=== PATIENT | male | born 1950 | race Caucasian/White ===

== ENCOUNTER 2019-07-30 20:12 | Emergency (ER) | payer MEDICARE, BC ==
[~2019-07-30] VITALS: Ht 175.3 cm; Wt 95.3 kg
[2019-07-30] MEDS ORDERED: TDAP DIPH,PERTUSS,TET VAC/PF 0.5 ML DISP.SYRIN IM ONE (21:00)
--- NOTE | 2019-07-30 21:13 | NUR ---
Per patient, he had already received tetanus vaccine within the last 5 years. ERMD made aware and ERMD stated to cancel the TDAP order.
--- NOTE | 2019-07-30 21:39 | NUR ---
Patient discharged to home in stable conditon. Written and verbal after care instructions given. Patient verbalizes understanding of instructions. Patient ambulated with stable gait.
[2019-07-30 21:46] VITALS: BP 151/89
== END 2019-07-30 21:11 | disposition home or self-care (01) ==
LOC: ER 20:19
DX: S61.212A Laceration without foreign body of right middle finger without damage to nail, initial encounter (principal); E78.00 Pure hypercholesterolemia, unspecified; W26.8XXA Contact with other sharp object(s), not elsewhere classified, initial encounter; Y93.89 Activity, other specified; Y92.89 Other specified places as the place of occurrence of the external cause; Y99.8 Other external cause status
CPT/HCPCS: 12002; 99283; J3490; A4217; A4663

== ENCOUNTER 2019-08-01 15:12 | Emergency (ER) | payer MEDICARE, BC ==
[~2019-08-01] VITALS: Ht 175.3 cm; Wt 95.3 kg
--- NOTE | 2019-08-01 15:22 | NUR ---
Dr Saeed at the bedside for MSE.
--- NOTE | 2019-08-01 15:28 | NUR ---
Patient discharged to home in stable conditon. Written and verbal after care instructions given. Patient verbalizes understanding of instructions.
== END 2019-08-01 15:28 | disposition home or self-care (01) ==
LOC: ER 15:12
DX: S61.212D Laceration without foreign body of right middle finger without damage to nail, subsequent encounter (principal); E78.00 Pure hypercholesterolemia, unspecified; X58.XXXD Exposure to other specified factors, subsequent encounter
CPT/HCPCS: A4663

== ENCOUNTER 2019-08-16 10:48 | Emergency (ER) | payer MEDICARE, BC ==
[~2019-08-16] VITALS: Ht 175.3 cm; Wt 95.3 kg
--- NOTE | 2019-08-16 11:01 | NUR ---
Patient discharged to home in stable conditon. after care instructions given by md. Patient verbalizes understanding of instructions.
== END 2019-08-16 11:19 | disposition home or self-care (01) ==
LOC: ER 10:48
DX: S61.219D Laceration without foreign body of unspecified finger without damage to nail, subsequent encounter (principal); W45.8XXD Other foreign body or object entering through skin, subsequent encounter; L40.9 Psoriasis, unspecified
CPT/HCPCS: A4663